=== PATIENT | male | born 2000 | race Two or more races ===

== ENCOUNTER 2021-07-16 08:02 | Day surgery (SDC) | payer OTHER ==
[2021-07-14 11:55] LABS: Basophils # (auto) 0.1 10 ^3/uL (0-0.2); Eosinophils # (auto) 0.3 10 ^3/uL (0-0.8); Hemoglobin 15.8 g/dL (13.5-17.5); Lymphocytes # (auto) 1.7 10 ^3/uL (0.4-5.4); Monocytes # (auto) 0.4 10 ^3/uL (0-1.3); Nucleated Red Blood Cells % 0.1 %
[2021-07-14 11:56] LABS: Basophils % (auto) 1.4 % (0.0-2.0); Hematocrit 47.6 % (41.0-53.0); Lymphocytes % (auto) 29.1 % (10.0-50.0); Mean Corpuscular Hemoglobin 26.7 pg (28.0-32.0); Mean Corpuscular Hgb Conc. 33.2 g/dL (32.0-36.0); Mean Corpuscular Volume 80.3 fL (80.0-100.0); Monocytes % (auto) 6.5 % (0.0-12.0); Neutrophils # (auto) 3.4 10 ^3/uL (1.6-8.6); Red Blood Cells 5.92 10^6/uL (4.5-5.90); Red Cell Distribution Width 14.2 % (11.8-14.3); White Blood Cell 5.8 10^3/uL (4.4-10.8)
[2021-07-14 12:07] LABS: Urine Bacteria NONE SEEN /hpf (None Seen); Urine Blood Negative /uL (Negative); Urine Specific Gravity 1.016 (1.001-1.035); Urine WBC 1 /hpf (0 - 3)
[2021-07-14 12:35] LABS: Potassium 4.2 mmol/L (3.5-5.1)
[2021-07-14 12:51] LABS: Bilirubin, Total 0.7 mg/dL (0.2-1.0); Calcium 9.4 mg/dL (8.5-10.1); Total Protein 8.1 g/dL (6.4-8.2)
[~2021-07-16] VITALS: Ht 190.5 cm; Wt 120.2 kg
[2021-07-16] MEDS ORDERED: ceFAZolin 1GM/50ML 100 ML IV ONE (08:16)
[2021-07-16] MEDS ORDERED: fentaNYL CITRATE 100 MCG/2 ML VL ONE (11:13)
[2021-07-16] MEDS ORDERED: MIDAZOLAM HCL 2MG/2ML 2ml VIAL (1mg/ml) ONE (11:13)
[2021-07-16] MEDS ORDERED: MEPERIDINE HCL (50 MG/ML) 1 ML VIAL ONE ×2 (11:14→13:13)
[2021-07-16] MEDS ORDERED: PROPOFOL 10 MG/ML 20 ML IV ONE (11:21)
[2021-07-16] MEDS ORDERED: DexAMETHasone SOD PHOS 10MG/1ML VIAL INJ ONE (11:21)
[2021-07-16] MEDS ORDERED: BUPIVACAINE W/ EPINEPH 0.25% INJ 50ML MDV ONE (12:28)
[2021-07-16] MEDS ORDERED: MIDAZOLAM HCL 2MG/2ML 2ml VIAL (1mg/ml) IV PRN (12:30)
[2021-07-16] MEDS ORDERED: HYDROmorphone HCL 2 MG/ML VL IV PRN (12:30)
[2021-07-16] MEDS ORDERED: MORPHINE SULFATE 4 MG/ML SYR/VIAL IV PRN (12:30)
[2021-07-16] MEDS ORDERED: ONDANSETRON HCL 4 MG/2 ML VIAL IV PRN (12:30)
[2021-07-16] MEDS ORDERED: ePHEDrine SULFATE 50 MG/ML AMP IV PRN (12:30)
[2021-07-16] MEDS ORDERED: LABETALOL HCL 5 MG/ML 4ML SYRINGE IV PRN (12:30)
[2021-07-16] MEDS ORDERED: KETOROLAC TROMETH 30 MG/ML 1ML VIAL IV ONE (12:30)
[2021-07-16] MEDS ORDERED: METOCLOPRAMIDE HCL 5MG/ml INJ 2ml VIAL ONE (13:13)
[2021-07-16 14:45] VITALS: BP 115/66
== END 2021-07-16 15:15 | disposition home or self-care (01) ==
LOC: SUR 08:02
PROVIDERS: ATTEND Surgery
DX: K40.90 Unilateral inguinal hernia, without obstruction or gangrene, not specified as recurrent (principal); I10 Essential (primary) hypertension; E66.9 Obesity, unspecified; Z20.822 Contact with and (suspected) exposure to COVID-19; Z68.33 Body mass index [BMI] 33.0-33.9, adult
CPT/HCPCS: 36415; 49505; 80053; 81001; 85025; J0690; J1100; J2175; J2250; J2704; J2765; J3010; U0003

== ENCOUNTER 2021-08-07 17:32 | Emergency (ER) | payer MEDICAID, OTHER ==
[~2021-08-07] VITALS: Ht 190.5 cm; Wt 124.7 kg
[2021-08-07] MEDS ORDERED: IOHEXOL 300 MG/ML 100ML BOTTLE IJ ONE (18:05)
[2021-08-07 18:38] LABS: Basophils # (auto) 0.1 10 ^3/uL (0-0.2); Eosinophils # (auto) 0.3 10 ^3/uL (0-0.8); Lymphocytes # (auto) 2.1 10 ^3/uL (0.4-5.4); Monocytes # (auto) 0.4 10 ^3/uL (0-1.3); Monocytes % (auto) 6.8 % (0.0-12.0)
[2021-08-07 18:39] LABS: Eosinophils % (auto) 4.8 % (0.0-7.0); Hematocrit 47.7 % (41.0-53.0); Hemoglobin 15.8 g/dL (13.5-17.5); Lymphocytes % (auto) 31.9 % (10.0-50.0); Mean Corpuscular Hemoglobin 26.4 pg (28.0-32.0); Mean Corpuscular Hgb Conc. 33.1 g/dL (32.0-36.0); Mean Corpuscular Volume 79.7 fL (80.0-100.0); Neutrophils # (auto) 3.7 10 ^3/uL (1.6-8.6); Neutrophils % (auto) 55.5 % (37.0-80.0); Nucleated Red Blood Cells % 0.1 %; Red Blood Cells 5.98 10^6/uL (4.5-5.90); Red Cell Distribution Width 14.1 % (11.8-14.3); White Blood Cell 6.6 10^3/uL (4.4-10.8)
[2021-08-07 19:00] LABS: Albumin 3.7 g/dL (3.4-5.0); BUN/Creatinine Ratio 17.5; Calcium 8.9 mg/dL (8.5-10.1); Potassium 4.1 mmol/L (3.5-5.1); Total Protein 7.7 g/dL (6.4-8.2)
[2021-08-07 19:03] LABS: Bilirubin, Total 0.5 mg/dL (0.2-1.0)
[2021-08-07 23:45] LABS: Urine Bacteria NONE SEEN /hpf (None Seen); Urine Blood Negative /uL (Negative); Urine Specific Gravity 1.048 (1.001-1.035); Urine WBC 2 /hpf (0 - 3)
== END 2021-08-07 23:36 | disposition left against medical advice (07) ==
LOC: ER 17:32
DX: R20.2 Paresthesia of skin (principal); Z48.815 Encounter for surgical aftercare following surgery on the digestive system
CPT/HCPCS: 36415; 74177; 80053; 81001; 85025; 99285; Q9967

== ENCOUNTER 2022-08-11 07:11 | Emergency (ER) | payer MEDICAID ==
[~2022-08-11] VITALS: Ht 190.5 cm; Wt 122.0 kg
[2022-08-11] MEDS ORDERED: HYDROcodone-ACET 5/325MG TAB PO ONE (09:15)
[2022-08-11 09:27] LABS: Basophils # (auto) 0.1 10 ^3/uL (0-0.2); Basophils % (auto) 0.9 % (0.0-2.0); Eosinophils # (auto) 0.2 10 ^3/uL (0-0.8); Eosinophils % (auto) 2.7 % (0.0-7.0); Hematocrit 43.1 % (41.0-53.0); Hemoglobin 14.4 g/dL (13.5-17.5); Lymphocytes # (auto) 1.6 10 ^3/uL (0.4-5.4); Lymphocytes % (auto) 17.6 % (10.0-50.0); Mean Corpuscular Hemoglobin 26.7 pg (28.0-32.0); Mean Corpuscular Hgb Conc. 33.5 g/dL (32.0-36.0); Mean Corpuscular Volume 79.6 fL (80.0-100.0); Monocytes # (auto) 0.6 10 ^3/uL (0-1.3); Monocytes % (auto) 6.1 % (0.0-12.0); Neutrophils # (auto) 6.6 10 ^3/uL (1.6-8.6); Neutrophils % (auto) 72.7 % (37.0-80.0); Red Blood Cells 5.41 10^6/uL (4.5-5.90); Red Cell Distribution Width 14.7 % (11.8-14.3); White Blood Cell 9.1 10^3/uL (4.4-10.8)
[2022-08-11 09:38] LABS: Albumin 3.8 g/dL (3.4-5.0); Calcium 8.9 mg/dL (8.5-10.1); Potassium 3.9 mmol/L (3.5-5.1)
[2022-08-11 09:42] LABS: BUN/Creatinine Ratio 13.9; Bilirubin, Total 0.8 mg/dL (0.2-1.0); Total Protein 7.4 g/dL (6.4-8.2)
[2022-08-11 10:47] LABS: Urine Bacteria NONE SEEN /hpf (None Seen); Urine Blood Negative /uL (Negative); Urine Specific Gravity 1.008 (1.001-1.035); Urine WBC 46 /hpf (0 - 3)
[2022-08-11] MEDS ORDERED: cefTRIAXone W LIDOCAINE 750MG IM IM ONE (12:15)
[2022-08-11] MEDS ORDERED: cefTRIAXone W LIDOCAINE 500 MG IM IM ONE (12:45)
[2022-08-11 13:00] VITALS: BP 129/85
[2022-08-11] MEDS ORDERED: LEVO-28 PO (13:26)
== END 2022-08-11 13:53 | disposition home or self-care (01) ==
LOC: ER 07:11
DX: N43.3 Hydrocele, unspecified (principal); K40.90 Unilateral inguinal hernia, without obstruction or gangrene, not specified as recurrent; N39.0 Urinary tract infection, site not specified
CPT/HCPCS: 36415; 74177; 76870; 80053; 81001; 83605; 85025; 87491; 87591; 96372; 99285; J0696

== ENCOUNTER 2022-11-17 19:54 | Emergency (ER) | payer MEDICAID ==
[~2022-11-17] VITALS: Ht 190.5 cm; Wt 125.0 kg
[~2022-11-17 19:54] MED LIST: LEVO-28 PO
[2022-11-17] MEDS ORDERED: diphenhdrAMINE HCL 50 MG/1 ML VL ONE (20:07)
[2022-11-17] MEDS ORDERED: methylPREDNISolone SOD SUCC 125 MG/2 ML VL ONE (20:07)
[2022-11-17] MEDS ORDERED: FAMOTIDINE (10MG/ML) 2ML VL IV ONE ×2 (20:07→20:15)
[2022-11-17] MEDS ORDERED: methylPREDNISolone SOD SUCC 125 MG/2 ML VL IV ONE (20:15)
[2022-11-17] MEDS ORDERED: SODIUM CHLORIDE 0.9% 500 ML IV ONE (20:15)
[2022-11-17] MEDS ORDERED: diphenhdrAMINE HCL 50 MG/1 ML VL IV ONE (20:15)
[2022-11-17] MEDS ORDERED: ALBUTEROL SULF 2.5 MG/0.5ML(0.5%) NEB SOLN NEB ONE (20:30)
[2022-11-17] MEDS ORDERED: IPRATROPIUM BROM 0.5 MG/2.5ML INH SOL NEB ONE (20:30)
[2022-11-17] MEDS ORDERED: ALBUTEROL MEDNEB 2.5 mg/3ml NEB ONE (20:31)
[2022-11-17] MEDS ORDERED: PRED20TA2 PO (22:09)
[2022-11-17] MEDS ORDERED: EPIN0.3I27 IJ (22:09)
[2022-11-18 01:40] VITALS: BP 137/82
== END 2022-11-18 01:46 | disposition home or self-care (01) ==
LOC: ER 19:54
DX: T78.40XA Allergy, unspecified, initial encounter (principal); R42 Dizziness and giddiness; R07.9 Chest pain, unspecified; Z88.6 Allergy status to analgesic agent; X58.XXXA Exposure to other specified factors, initial encounter
CPT/HCPCS: 71045; 94640; 96361; 96374; 96375; 99284; J1200; J2930; J3490; J7040; J7644

== ENCOUNTER 2023-06-01 09:42 | Emergency (ER) | payer MEDICAID ==
[~2023-06-01] VITALS: Ht 190.5 cm; Wt 125.0 kg
[~2023-06-01 09:42] MED LIST changes: +EPIN0.3I27 IJ; -LEVO-28 PO; +LEVO500T91 PO; +PRED20TA2 PO
[2023-06-01 09:48] VITALS: BP 138/92; PULSE 86; TEMP 98.1
[2023-06-01] MEDS ORDERED: DexAMETHasone SOD PHOS 10MG/1ML VIAL INJ IM ONE (11:30)
[2023-06-01] MEDS ORDERED: ALBUTEROL SULF 2.5 MG/0.5ML(0.5%) NEB SOLN NEB ONE (11:30)
[2023-06-01] MEDS ORDERED: IPRATROPIUM BROM 0.5 MG/2.5ML INH SOL NEB ONE (11:30)
[2023-06-01 11:34] VITALS: RESP 18; O2SAT 99
[2023-06-01] MEDS ORDERED: CEPH500T PO (12:25)
[2023-06-01] MEDS ORDERED: PRED20TA2 PO (12:25)
[2023-06-01] MEDS ORDERED: ALBUAER3 IN (12:25)
== END 2023-06-01 12:31 | disposition home or self-care (01) ==
LOC: ER 09:42
DX: J20.9 Acute bronchitis, unspecified (principal); Z98.890 Other specified postprocedural states
CPT/HCPCS: 94640; 96372; 99283; J1100; J7644

== ENCOUNTER 2023-07-20 09:09 | Emergency (ER) | payer MEDICAID ==
[~2023-07-20] VITALS: Ht 190.5 cm; Wt 131.8 kg
[~2023-07-20 09:09] MED LIST changes: +ALBUAER3 IN; +CEPH500T PO
[2023-07-20 10:29] VITALS: BP 131/78; PULSE 84; RESP 18; TEMP 97.8; O2SAT 96
[2023-07-20] MEDS ORDERED: PROM1SOL4 PO (11:12)
== END 2023-07-20 11:12 | disposition home or self-care (01) ==
LOC: ER 09:09
DX: J20.9 Acute bronchitis, unspecified (principal); Z98.890 Other specified postprocedural states